=== PATIENT | male | born 1995 | race Asian ===

== ENCOUNTER 2023-01-02 12:46 | Emergency (ER) | payer OTHER ==
[2023-01-02 13:02] VITALS: BP 108/72; PULSE 80; RESP 16; TEMP 99.3; BMI 41.4
[2023-01-02] MEDS ORDERED: TETRACAINE 0.5% HCL 0.6ML DROPPER.BOTTLE OD ONE (13:23)
[2023-01-02] MEDS ORDERED: FLUORESCEIN NA 1 EA STRIP OD ONE (13:23)
[2023-01-02] MEDS ORDERED: TETRACAINE 0.5% OPHTH SOLN 2 ML BOTTLE ONE (13:25)
[2023-01-02] MEDS ORDERED: FLUORESCEIN NA 1 EA STRIP ONE (13:25)
== END 2023-01-02 14:08 | disposition home or self-care (01) ==
LOC: FER 12:46
DX: H57.89 Other specified disorders of eye and adnexa (principal); H10.31 Unspecified acute conjunctivitis, right eye
CPT/HCPCS: 99283-25